=== PATIENT | female | born 1965 | race Caucasian/White ===

== ENCOUNTER 2021-10-24 10:37 | Emergency (ER) | payer OTHER ==
[~2021-10-24] VITALS: Ht 157.5 cm; Wt 38.6 kg
[2021-10-24] MEDS ORDERED: PERM60CR19 TP (17:48)
== END 2021-10-24 11:09 | disposition left against medical advice (07) ==
LOC: ER 10:37
DX: Z53.21 Procedure and treatment not carried out due to patient leaving prior to being seen by health care provider (principal)

== ENCOUNTER 2021-10-24 17:10 | Emergency (ER) | payer OTHER ==
[~2021-10-24] VITALS: Ht 157.5 cm; Wt 38.6 kg
--- NOTE | 2021-10-24 17:18 | NUR ---
[email or web address], medical screening exam in progress
--- NOTE | 2021-10-24 17:46 | NUR ---
Patient is resting comfortably on gurney with eyes closed, NAD.
[2021-10-24] MEDS ORDERED: PERM60CR19 TP (17:48)
--- NOTE | 2021-10-24 17:59 | NUR ---
Patient was given written and verbal discharge instructions. Patient verbalized understanding and compliance of discharge instructions. Patient was ambulatory with brisk steady gait. "[facility]" by [email or web address] and its instructions were provided as well. Patient was also given a list of available shelters in surrounding area.
== END 2021-10-24 17:56 | disposition home or self-care (01) ==
LOC: ER 17:11
DX: R21 Rash and other nonspecific skin eruption (principal); Z59.00 Homelessness unspecified; Z86.19 Personal history of other infectious and parasitic diseases
CPT/HCPCS: A4663